=== PATIENT | female | born 1970 | race Caucasian/White ===

== ENCOUNTER 2017-01-22 13:52 | Emergency (ER) | payer OTHER ==
--- NOTE | ~2017-01-22 | CR20 ---
[facility] A Service of [facility] & [facility] RADIOLOGY TEXT RESULTS PATIENT: ZAMZAM MERCER LOCATION: [facility] : [birth year] UNIT #: [id number] AGE: [address]: Lorelei Hankins APRN SEX: F ORDER DR: [id number] [facility] [address] [place], [place] [address] [id number] E MR#: [id number] Acc #: [id number] NAME: ZAMZAM MERCER : 1970 SEX: F STUDY DATE/TIME: 01/22/2017 16:20 UNIT: [facility] ROOM: STUDY DESCRIPTION: CR Ankle Min 3 Views Lt Attending Physician: Lorelei Hankins A.P.R.N. Referring Physician: Jordin Enrique M.D. Ordering Physician: Ed Osmel Chin M.D. Primary Care Physician: Brigette Mcghee M.D. MEDICAL IMAGING REPORT This report is preliminary unless electronic signature is present EXAM Left ankle, 01/22. INDICATION Ankle pain, swelling and bruising after a fall last night. FINDINGS AP, lateral, and oblique projections of the ankle show satisfactory integrity of the joint mortise with a smooth articular surface. There is no identifiable fracture, dislocation, or radiopaque foreign body. IMPRESSION Normal left ankle. Dictated by... Don Valdivia Jr., M.D. THIS IS AN ELECTRONICALLY VERIFIED REPORT Don Valdivia Jr., M.D. at 01/22/2017 9:44 PM AMRIK/jimy TD: 01/22/2017 18:26 JOB #: [id number] MEDICAL IMAGING REPORT Page 1 of 1 COPY
--- NOTE | ~2017-01-22 | CR173 ---
[facility] A Service of [facility] & [facility] RADIOLOGY TEXT RESULTS PATIENT: ZAMZAM MERCER LOCATION: [place] : 68 UNIT #: [id number] AGE: [address]: Lorelei Hankins APRN SEX: F ORDER DR: [id number] [facility] [address] [place], [place] [address] [id number] E MR#: [id number] Acc #: [id number] NAME: ZAMZAM MERCER : 1970 SEX: F STUDY DATE/TIME: 01/22/2017 16:22 UNIT: [facility] ROOM: STUDY DESCRIPTION: CR Knee 3 Views Rt Attending Physician: Lorelei Hankins A.P.R.N. Referring Physician: Jordin Enrique M.D. Ordering Physician: Ed Osmel Chin M.D. Primary Care Physician: Brigette Mcghee M.D. MEDICAL IMAGING REPORT This report is preliminary unless electronic signature is present EXAM Right knee, 3 views, 01/22/17. HISTORY Right knee pain, bruising and swelling, status post fall last night in [employer] parking lot. FINDINGS AP and lateral projection of the knee shows smooth articular anatomy without indication of fracture or dislocation at the major weight-bearing surface of the knee. There is no indication of radiopaque foreign body about the knee surface or joint effusion. IMPRESSION Normal right knee. Dictated by... Xavier Rodgers M.D. THIS IS AN ELECTRONICALLY VERIFIED REPORT Xavier Rodgers M.D. at 01/23/2017 2:13 PM ERLIN/jimy TD: 01/22/2017 18:25 JOB #: [id number] MEDICAL IMAGING REPORT Page 1 of 1 COPY
--- NOTE | ~2017-01-22 | CR21 ---
[facility] A Service of [facility] & [facility] RADIOLOGY TEXT RESULTS PATIENT: ZAMZAM MERCER LOCATION: [place] : [birth year] UNIT #: [id number] AGE: [address]: Lorelei Hankins APRN SEX: F ORDER DR: [id number] [facility] [address] [place], [place] [address] [id number] E MR#: [id number] Acc #: [id number] NAME: ZAMZAM MERCER : 1970 SEX: F STUDY DATE/TIME: 01/22/2017 16:18 UNIT: [facility] ROOM: STUDY DESCRIPTION: CR Ankle Min 3 Views Rt Attending Physician: Lorelei Hankins A.P.R.N. Ordering Physician: Jarrell Martínez M.D. Primary Care Physician: Brigette Mcghee M.D. MEDICAL IMAGING REPORT This report is preliminary unless electronic signature is present EXAM Right ankle, 01/22. INDICATION Ankle pain, swelling and bruising after fall last night. FINDINGS AP, lateral, and oblique projections of the ankle show satisfactory integrity of the joint mortise with a smooth articular surface. There is no identifiable fracture, dislocation, or radiopaque foreign body. IMPRESSION Normal right ankle. Dictated by... Don Valdivia Jr., M.D. THIS IS AN ELECTRONICALLY VERIFIED REPORT Don Valdivia Jr., M.D. at 01/22/2017 9:44 PM AMRIK/jimy TD: 01/22/2017 18:22 JOB #: [id number] MEDICAL IMAGING REPORT Page 1 of 1 COPY
[~2017-01-22 13:52] MED LIST: ALBUTEROL17 GM INH; BENZONATATE PO; CIPRO PO; FLEXERIL PO; G-FENESIN400 MG PO; HCTZ PO; IBUPROFEN PO; IBUPROFEN800 MG PO; LEXAPRO PO; LEXAPRO20 MG PO; LOPRESSOR PO; MULTI-VITAMIN1 EAC1 PO; PAXIL PO; PHENERGAN DM1 ML PO; PHENERGAN/CODEIN5 ML PO; PREDNISONE PO; SUDAFED30 M1 PO; TESSALON PERLE100 M1 PO; VIBRAMYCIN100 M1 PO; VISTARIL; VOLTAREN50 MG PO; ZITHROMAX PO; ZOLOFT50 MG PO
== END 2017-01-22 17:25 | disposition home or self-care (01) ==
LOC: CFTX 13:52 → CED 13:52 → CFTX 16:38
DX: S93.402A Sprain of unspecified ligament of left ankle, initial encounter (principal); S80.01XA Contusion of right knee, initial encounter; I10 Essential (primary) hypertension; F17.210 Nicotine dependence, cigarettes, uncomplicated; Z88.0 Allergy status to penicillin; Z88.2 Allergy status to sulfonamides; Z88.1 Allergy status to other antibiotic agents; W22.8XXA Striking against or struck by other objects, initial encounter; Y92.89 Other specified places as the place of occurrence of the external cause
CPT/HCPCS: 29530; 29540; 73562; 73610; 99284

== ENCOUNTER 2017-02-10 14:16 | Emergency (ER) | payer OTHER ==
[2017-02-10] MEDS ORDERED: LEXAPRO PO (14:22)
[2017-02-10] MEDS ORDERED: LOPRESSOR PO (14:22)
[2017-02-10] MEDS ORDERED: VISTARIL PO (14:23)
[2017-02-10] MEDS ORDERED: VOLTAREN75 MG PO (14:23)
== END 2017-02-10 15:11 | disposition home or self-care (01) ==
LOC: SED 14:16
DX: M79.642 Pain in left hand (principal); M79.641 Pain in right hand
CPT/HCPCS: 99283